=== PATIENT | male | born 1945 | race Caucasian/White ===

== ENCOUNTER 2016-06-20 19:23 | Inpatient (IN) | payer OTHER ==
[~2016-06-20] VITALS: Ht 170.2 cm; Wt 85.5 kg
[2016-06-20 20:35] LABS: ADD MIUA? YES; BILIRUBIN NEGATIVE; BLOOD SMALL; COLOR STRAW ((YELLOW)); GLUCOSE (STRIP) NEGATIVE; KETONES NEGATIVE; LEUKOCYTES NEGATIVE; NITRITE NEGATIVE; PROTEIN (STRIP) NEGATIVE; SPECIFIC GRAVITY 1.005 (1.000-1.030); UROBILINOGEN 0.2 MG/DL (0.2-1.0)
[2016-06-20] MEDS ORDERED: LISINOPRIL20 MG PO (20:38)
[2016-06-20] MEDS ORDERED: LOPRESSOR25 MG PO (20:39)
[2016-06-20 20:54] LABS: CHLORIDE 109 mEq/L (99-109); POTASSIUM 4.1 mEq/L (3.7-5.4); SODIUM 141 mEq/L (136-147)
[2016-06-20 20:56] LABS: BASOPHIL COUNT 0.1 K/uL (0-0.1); EOSINOPHIL (%) 2.3 % (0-5); EOSINOPHIL COUNT 0.3 K/uL (0-0.3); HEMATOCRIT 43.6 % (38.0-50.0); IMMATURE GRANULOCYTE (%) 0.4 % (0.0-0.7); INSTRUMENT ABS NEUTROPHIL CT 7.8 K/uL; LYMPHOCYTE COUNT 2.6 K/uL (1.0-2.8); MCH 28.3 PG (29.0-34.0); MCHC 33.3 G/DL (30.0-36.0); MCV 85.2 FL (86-99); MEAN PLAT.VOLUME 9.6 uM^3 (9.0-12.4); MONOCYTE (%) 5.8 % (3-12); MONOCYTE COUNT 0.7 K/uL (0-0.8); NEUTROPHIL (%) 67.9 % (45-76); NEUTROPHIL COUNT 7.8 K/uL (1.8-6.4); PLATELET COUNT 285 K/uL (156-360); RBC DIS.WIDTH-CV 14.1 % (11.8-14.6); RED BLOOD COUNT 5.12 M/uL (4.00-5.50); WHITE BLOOD COUNT 11.4 K/uL (4.1-10.2)
[2016-06-20 20:57] LABS: GLUCOSE 110 mg/dL (70-99)
[2016-06-20 20:58] LABS: ANION GAP 10 MEQ/L (2-14)
[2016-06-20 20:59] LABS: BACTERIA NONE SEEN /HPF; EPITHELIAL CELLS NONE SEEN /HPF; MUCUS TRACE /LPF; RED BLOOD CELLS NONE SEEN /HPF (0-5); UCUL ADDED? NO; WHITE BLOOD CELLS 0-5 /HPF (0-5)
[2016-06-20 20:59] LABS: TOTAL BILIRUBIN 0.4 mg/dL (0.0-1.0)
[2016-06-20 21:00] LABS: ALKALINE PHOSPHATASE 127 IU/L (3-129); GFR ESTIMATE (CALCULATED) 35 mL/min/
[2016-06-20 21:01] LABS: UREA NITROGEN (BUN) 17 mg/dL (9-23)
[2016-06-20] MEDS ORDERED: PROAIR HFA8.5 GM IH (22:22)
[2016-06-20] MEDS ORDERED: VALIUM5 MG PO (22:22)
[2016-06-20] MEDS ORDERED: HEPSERA10 MG PO (22:22)
[2016-06-20] MEDS ORDERED: PREVACID30 MG PO (22:23)
[2016-06-20] MEDS ORDERED: DAILY VITE1 EAC1 PO (22:23)
[2016-06-20] MEDS ORDERED: LIPITOR40 MG PO (22:23)
[2016-06-20] MEDS ORDERED: VITAMIN D31000 UNI2 PO (22:23)
[2016-06-20] MEDS ORDERED: CORICIDIN HBP1 EAC5 PO (22:24)
[2016-06-20] MEDS ORDERED: LO-DOSE ASPIRIN81 M1 PO (22:24)
[2016-06-20] MEDS ORDERED: TUMS500 MG PO (22:24)
[2016-06-21 02:13] LABS: UR CREATININE CONCENTRATION 45.4 MG/DL
[2016-06-21 04:18] VITALS: BP 168/91
[2016-06-21 07:57] VITALS: BP 170/87
[2016-06-21 08:19] LABS: ANION GAP 7 MEQ/L (2-14); CHLORIDE 109 MEQ/L (99-109); GFR ESTIMATE (CALCULATED) 46 mL/min/; GLUCOSE 99 mg/dL (70-99); SAMPLE HEMOLYSIS CHECK 1; SAMPLE ICTERIC CHECK 0; SAMPLE LIPEMIA CHECK 0; SODIUM 140 MEQ/L (136-147); UREA NITROGEN (BUN) 19 mg/dL (9-23)
[2016-06-21 08:21] LABS: POTASSIUM 4.1 MEQ/L (3.7-5.4)
[2016-06-21 11:49] VITALS: BP 181/80
[2016-06-21 15:55] VITALS: BP 162/69
[2016-06-21 21:00] VITALS: BP 174/80
[2016-06-22 00:33] VITALS: BP 151/76
[2016-06-22 04:33] VITALS: BP 167/84
[2016-06-22 06:31] LABS: BASOPHIL COUNT 0.1 K/uL (0-0.1); EOSINOPHIL (%) 3.7 % (0-5); EOSINOPHIL COUNT 0.4 K/uL (0-0.3); HEMATOCRIT 42.4 % (38.0-50.0); IMMATURE GRANULOCYTE (%) 0.3 % (0.0-0.7); INSTRUMENT ABS NEUTROPHIL CT 6.9 K/uL; LYMPHOCYTE COUNT 2.7 K/uL (1.0-2.8); MCH 27.7 PG (29.0-34.0); MCHC 32.5 G/DL (30.0-36.0); MCV 85.1 FL (86-99); MEAN PLAT.VOLUME 9.7 uM^3 (9.0-12.4); MONOCYTE (%) 6.5 % (3-12); MONOCYTE COUNT 0.7 K/uL (0-0.8); NEUTROPHIL (%) 63.8 % (45-76); NEUTROPHIL COUNT 6.9 K/uL (1.8-6.4); PLATELET COUNT 267 K/uL (156-360); RBC DIS.WIDTH-CV 14.2 % (11.8-14.6); RBC DIS.WIDTH-SD 43.9 % (39-53); RED BLOOD COUNT 4.98 M/uL (4.00-5.50); WHITE BLOOD COUNT 10.9 K/uL (4.1-10.2)
[2016-06-22 07:00] LABS: ANION GAP 9 MEQ/L (2-14); CHLORIDE 107 MEQ/L (99-109); GFR ESTIMATE (CALCULATED) 58 mL/min/; GLUCOSE 123 mg/dL (70-99); POTASSIUM 3.8 MEQ/L (3.7-5.4); SAMPLE HEMOLYSIS CHECK 0; SAMPLE ICTERIC CHECK 0; SAMPLE LIPEMIA CHECK 0; SODIUM 137 MEQ/L (136-147); UREA NITROGEN (BUN) 20 mg/dL (9-23); URIC ACID 3.3 mg/dL (3.1-9.2)
[2016-06-22 07:27] VITALS: BP 150/83
[2016-06-22] MEDS ORDERED: HYDROCHLOROTHIA25 MG PO (11:19)
[2016-06-22] MEDS ORDERED: NIFEDIPINE ER30 MG PO (11:19)
[2016-06-22 11:35] VITALS: BP 142/74
== END 2016-06-22 11:54 | disposition home or self-care (01) | DRG 305 ==
LOC: EME 19:23 → EDOF 06-21 00:17 → 5WEST 06-21 04:05
PROVIDERS: Emergency Medicine; Family Medicine; Internal Medicine Nephrology
DX: I16.0 Hypertensive urgency (principal); B18.1 Chronic viral hepatitis B without delta-agent; N17.9 Acute kidney failure, unspecified; E78.5 Hyperlipidemia, unspecified; G89.29 Other chronic pain; Z88.1 Allergy status to other antibiotic agents; F17.200 Nicotine dependence, unspecified, uncomplicated; R51 Headache; Z79.82 Long term (current) use of aspirin; K21.9 Gastro-esophageal reflux disease without esophagitis
CPT/HCPCS: 76770; 80048; 80053; 80069; 81003; 82088 90; 82570; 84100; 84156; 84244 90; 84300; 84550; 85025; 93005; 93975; 94760; 99202; 99281; 99285; J1644; J7030